=== PATIENT | male | born 1935 | race Caucasian/White ===

== ENCOUNTER 2017-03-14 07:15 | Day surgery (SDC) | payer MEDICARE, OTHER ==
[~2017-03-14] VITALS: Ht 180.3 cm; Wt 90.5 kg
[~2017-03-14 07:15] MED LIST: ASPI-496 PO; CARV6.252 PO; FAMO-79 PO; LANS15CA5 PO; LANS30CA16 PO; LOSA25TA5 PO; LOSA50TA2 PO; METF500T4 PO; MIRA25TA PO; NITR0.4T SL; OXYC5TAB2 PO; POTA10TA90 PO; ROSU20TA PO; TAMS-11 PO
[2017-03-14] MEDS ORDERED: LACTATED RINGERS 1,000 ML IV SCH (08:47)
[2017-03-14 08:48] VITALS: BP 124/72
[2017-03-14] MEDS ORDERED: PROPOFOL 10 MG/ML, 50ML ONE (09:10)
[2017-03-14] MEDS ORDERED: PHENYLEPHRINE 10 MG/ML ONE (09:10)
[2017-03-14] MEDS ORDERED: INDOCYANINE GREEN 25 MG VIAL ONE (09:10)
[2017-03-14] MEDS ORDERED: FENTANYL PF 100 MCG/2ML ONE (10:56)
== END 2017-03-14 15:00 | disposition home or self-care (01) ==
LOC: OUT 07:15
PROVIDERS: ATTEND Internal Medicine Gastroenterology
DX: D12.0 Benign neoplasm of cecum (principal); D12.3 Benign neoplasm of transverse colon; K57.30 Diverticulosis of large intestine without perforation or abscess without bleeding; K62.7 Radiation proctitis; K64.8 Other hemorrhoids; I25.10 Atherosclerotic heart disease of native coronary artery without angina pectoris; E11.9 Type 2 diabetes mellitus without complications; I10 Essential (primary) hypertension; N40.0 Benign prostatic hyperplasia without lower urinary tract symptoms; E78.5 Hyperlipidemia, unspecified; Z87.11 Personal history of peptic ulcer disease; M19.90 Unspecified osteoarthritis, unspecified site; Z85.46 Personal history of malignant neoplasm of prostate; Z90.49 Acquired absence of other specified parts of digestive tract; Z96.653 Presence of artificial knee joint, bilateral; Z96.611 Presence of right artificial shoulder joint; Z87.891 Personal history of nicotine dependence
CPT/HCPCS: 45380; 45382; 45390; 82962; 88305; A4648; J2370; J2704; J7120

== ENCOUNTER → 2017-06-07 | Outpatient (CLI) | payer MEDICARE, OTHER | END | disposition home or self-care (01) | LOC: CFH 10:45 | PROVIDERS: ATTEND Internal Medicine Cardiovascular Disease | DX: I71.4 Abdominal aortic aneurysm, without rupture (principal); I35.0 Nonrheumatic aortic (valve) stenosis; I34.0 Nonrheumatic mitral (valve) insufficiency; I25.5 Ischemic cardiomyopathy | CPT/HCPCS: 93306 ==

== ENCOUNTER → 2017-08-15 | Outpatient (CLI) | payer MEDICARE, OTHER ==
[~2017-08-15] MED LIST changes: +CHOL500015 PO; +CYAN10005 PO; +HYDR-3237 PO; +LACT1CAP40 PO; -LANS30CA16 PO; +LANS30CA60 PO; +LUTE1CAP2 PO; +METF500T9 PO; +POTA10TA6 PO; -POTA10TA90 PO
[2017-08-15 13:00] LABS: BLOOD UREA NITROGEN 22 mg/dL (7-18)
[2017-08-15 13:03] LABS: ASPARTATE AMINO TRANSFERASE 17 U/L (15-37)
== END | disposition home or self-care (01) ==
LOC: STAR 11:19
PROVIDERS: ATTEND Internal Medicine Gastroenterology
DX: D12.6 Benign neoplasm of colon, unspecified (principal); K62.7 Radiation proctitis; E11.9 Type 2 diabetes mellitus without complications; E78.5 Hyperlipidemia, unspecified; I10 Essential (primary) hypertension; Z87.891 Personal history of nicotine dependence; Z85.46 Personal history of malignant neoplasm of prostate
CPT/HCPCS: 36415; 80053; 93005

== ENCOUNTER 2017-08-22 07:26 | Day surgery (SDC) | payer MEDICARE, OTHER ==
[~2017-08-22] VITALS: Ht 180.3 cm; Wt 88.2 kg
[2017-08-22 08:01] VITALS: BP 135/86
[2017-08-22] MEDS ORDERED: LIDOCAINE 1%, 2ML ONE (08:09)
[2017-08-22] MEDS ORDERED: PROPOFOL 10 MG/ML, 20ML ONE ×2 (09:11→10:03)
[2017-08-22] MEDS ORDERED: LABETALOL 5MG/ML, 20ML IV PRN (09:30)
[2017-08-22] MEDS ORDERED: hydrALAzine 20 MG/ML, 1ML IV PRN (09:30)
[2017-08-22] MEDS ORDERED: PHENYLEPHRINE 10 MG/ML ONE (09:56)
== END 2017-08-22 11:35 ==
LOC: OUT 07:26
PROVIDERS: ATTEND Internal Medicine Gastroenterology
DX: K62.6 Ulcer of anus and rectum (principal); K57.30 Diverticulosis of large intestine without perforation or abscess without bleeding; K63.5 Polyp of colon; I10 Essential (primary) hypertension; E78.5 Hyperlipidemia, unspecified; I25.10 Atherosclerotic heart disease of native coronary artery without angina pectoris; Z09 Encounter for follow-up examination after completed treatment for conditions other than malignant neoplasm; Z86.010 Personal history of colon polyps
CPT/HCPCS: 45380; 82962; 88305; J2370; J2704

== ENCOUNTER 2020-06-30 08:50 | Outpatient (CLI) | payer MEDICARE, OTHER ==
[~2020-06-30 08:50] MED LIST changes: +CYAN-27 PO; -CYAN10005 PO; +LOSA25TA25 PO; -LOSA25TA5 PO; +METF-754 PO; +METF500T17 PO; -METF500T4 PO; -METF500T9 PO; -NITR0.4T SL; +NITR0.4T41 SL; -ROSU20TA PO; +ROSU20TA2 PO
[2020-06-30] MEDS ORDERED: PANT20TA3 PO (09:54)
[2020-06-30] MEDS ORDERED: FLUT9.9S NS (09:54)
[2020-06-30] MEDS ORDERED: CELE100C PO (09:54)
[2020-06-30] MEDS ORDERED: FAMO-79 PO (09:54)
[2020-06-30 10:25] LABS: BASOPHILS # (AUTO) 0.03 x10^3/uL (0-0.1); BASOPHILS % (AUTO) 1 % (0-1); EOSINOPHILS # (AUTO) 0.22 x10^3/uL (0-0.4); EOSINOPHILS % (AUTO) 4 % (1-7); LYMPHOCYTES % (AUTO) 22 % (22-44); MD NO; MEAN CORPUSCULAR HEMOGLOBIN 29.7 pg (27.5-34.5); MEAN CORPUSCULAR HGB CONC 32.6 g/dL (33.2-36.2); MEAN CORPUSCULAR VOLUME 90.9 fL (81-97); MEAN PLATELET VOLUME 7.8 fL (7.4-10.4); MONOCYTES # (AUTO) 0.76 x10^3/uL (0.2-0.8); MONOCYTES % (AUTO) 13 % (2-9); NEUTROPHILS # (AUTO) 3.51 x10^3/uL (1.8-6.8); NEUTROPHILS % (AUTO) 60 % (42-75); PLATELET COUNT 130 x10^3/uL (130-400); RED BLOOD COUNT 4.57 x10^6/uL (4.38-5.82); RED CELL DISTRIBUTION WIDTH 15.3 % (9.4-14.8)
[2020-06-30 10:38] LABS: ALANINE AMINOTRANSFERASE 21 U/L (12-78); ALBUMIN 3.8 g/dL (3.4-5.0); ANION GAP 6 mmol/L (5-15); CALCIUM 9.4 mg/dL (8.5-10.1); CHLORIDE 108 mmol/L (98-107); CREATININE 1.21 mg/dL (0.7-1.3)
[2020-06-30 10:41] LABS: ALKALINE PHOSPHATASE 136 U/L (45-117); BILIRUBIN,TOTAL 0.8 mg/dL (0.2-1.0); TOTAL PROTEIN 7.6 g/dL (6.4-8.2)
== END 2020-06-30 23:59 | disposition home or self-care (01) ==
LOC: STAR 08:50
PROVIDERS: ATTEND Surgery Vascular Surgery
DX: Z01.818 Encounter for other preprocedural examination (principal); Z11.59 Encounter for screening for other viral diseases
CPT/HCPCS: 36415; 80053; 85025; 87635; 93005

== ENCOUNTER → 2020-09-02 | Outpatient (CLI) | payer MEDICARE, OTHER ==
[~2020-09-02] MED LIST changes: +CELE100C PO; +FLUT9.9S NS; +OMNIPAQUE 350 MG/ML, 100ML BOTTLE ONE; +PANT20TA4 PO
== END | disposition home or self-care (01) ==
LOC: CFH 11:49
PROVIDERS: ATTEND Surgery Vascular Surgery
DX: K57.30 Diverticulosis of large intestine without perforation or abscess without bleeding (principal); N28.1 Cyst of kidney, acquired; I71.4 Abdominal aortic aneurysm, without rupture; K86.89 Other specified diseases of pancreas
CPT/HCPCS: 74174; 82565; Q9967